=== PATIENT | male | born 1950 | race Caucasian/White ===

== ENCOUNTER 2023-03-13 14:32 | Outpatient (REF) | payer MEDICARE, SELFPAY ==
--- NOTE | ~2023-03-13 | XR_ITS ---
EXAMINATION: XR HAND, LEFT CLINICAL INFORMATION: Pain and swelling. No injury. COMPARISON: Left hand radiographs dated 03/09/2017. TECHNIQUE: PA, lateral, and oblique views of the left hand. XR/XR hand LT min 3V FINDINGS / IMPRESSION: No fracture. Alignment is anatomic. Joint spaces are maintained. No erosions or soft tissue calcifications.
--- NOTE | ~2023-03-13 | XR_ITS ---
EXAMINATION: XR HAND, RIGHT CLINICAL INFORMATION: Pain and swelling. No injury. COMPARISON: Right hand radiographs dated 03/09/2017. TECHNIQUE: PA, lateral, and oblique views of the right hand. XR/XR hand RT min 3V FINDINGS / IMPRESSION: No fracture. Alignment is anatomic. Joint spaces are maintained. No erosions or soft tissue calcifications.
== END 2023-03-13 14:33 | disposition home or self-care (01) ==
LOC: HO.XRAY 14:32
PROVIDERS: PCP Internal Medicine; Visit Provider Internal Medicine
DX: R60.0 Localized edema (principal); M79.641 Pain in right hand; M79.642 Pain in left hand
CPT/HCPCS: 73130

== ENCOUNTER 2023-06-19 10:38 | Outpatient (REF) | payer MEDICARE, SELFPAY ==
--- NOTE | ~2023-06-19 | XR_ITS ---
EXAMINATION: XR LUMBOSACRAL SPINE CLINICAL INFORMATION: Low back pain. COMPARISON: None available. TECHNIQUE: Three views of the lumbosacral spine. FINDINGS: There is 1.2 cm of anterolisthesis of L4 on L5. Otherwise, anatomic alignment. No evidence of acute compression deformity. Moderate to severe intervertebral disc height loss spanning L3-S1. Moderate to severe facet arthropathy at L4-L5 and L5-S1 leading to some degree of neural foraminal encroachment and central canal narrowing. Symmetric SI joints. Pelvic phleboliths. Atherosclerotic disease of the abdominal aorta. XR/XR lumbar spine 2-3V IMPRESSION: 1. No acute compression deformity. 2. There is 1.2 cm of anterolisthesis of L4 on L5, most likely degenerative in nature. Recommend correlation with point tenderness. 3. Moderate to severe lower lumbar spondylosis; further characterization with MRI would be helpful for evaluation of the degree of nerve root impingement and central canal stenosis if clinically deemed appropriate.
== END 2023-06-19 10:39 | disposition home or self-care (01) ==
LOC: HO.HMGCX 10:38
PROVIDERS: PCP Internal Medicine; Visit Provider Internal Medicine
DX: M54.50 Low back pain, unspecified (principal)
CPT/HCPCS: 72100

== ENCOUNTER 2023-07-09 19:35 | Outpatient (REF) | payer MEDICARE, SELFPAY ==
--- NOTE | ~2023-07-09 | MR_ITS ---
EXAMINATION: MR LUMBAR SPINE WITHOUT CONTRAST CLINICAL INFORMATION: Low back pain, moderate to severe spondylolysis COMPARISON: Lumbar radiographs 06/19/2023 TECHNIQUE: MRI of the lumbar spine was obtained using routine sequences without the administration of intravenous contrast. FINDINGS: This examination assumes the presence of 5 lumbar type vertebral bodies. For the purposes of this examination, the L5-S1 intervertebral disc space is visualized on axial series 5 image 32. The normal lumbar lordosis is preserved. Dextrocurvature of the lumbar spine. Grade 1 anterolisthesis of L4-L5. Lumbar vertebral body heights are maintained. Multilevel degenerative endplate changes are noted. Subchondral cystic change in the L3, L5 and S1 vertebral bodies. The conus medullaris is normal in signal intensity and terminates at the level of L1. At T12-L1: Disc bulge with small right foraminal/far lateral disc protrusion. Facet arthropathy. The spinal canal is not significantly narrowed. The left neural foramen is patent. There is mild narrowing of the right neural foramen. L1-L2: Disc bulge and facet arthropathy. The spinal canal is not significantly narrowed. The neural foramen are patent. L2-L3: Trace disc bulge with facet arthropathy ligamentum flavum redundancy. The spinal canal and neural foramen are not significantly narrowed. L3-L4: Disc bulge and osteophytic ridging which is eccentric to the left. Facet arthropathy ligamentum flavum hypertrophy. Mild narrowing of the lateral recesses. The central canal is otherwise patent. There is mild to moderate right neural foraminal stenosis. Moderate left neural foraminal stenosis with abutment of the exiting left L3 nerve root. L4-L5: Severe facet arthropathy with ligamentum flavum redundancy. There is severe spinal canal stenosis at L4-L5 and extending inferiorly to the lower third of the L5 vertebral body. Near complete effacement of the thecal sac with crowding of the cauda equina nerve roots that is likely on a chronic, degenerative basis given severe facet arthropathy. There is a diffuse disc bulge with severe left neural foraminal stenosis and exiting nerve root impingement. Moderate to severe right neural foraminal stenosis with probable exiting nerve root impingement. Bilateral facet joint effusions. L5-S1: Eccentric right disc bulge and osteophytic ridging extending into the right neural foramen and far lateral space. Facet arthropathy with ligamentum flavum hypertrophy. Narrowing of the lateral recesses, greater on the right. The spinal canal is otherwise patent. Severe right neural foraminal stenosis with impingement of the exiting right L5 nerve root in the distal foramen/far lateral space. The left neural foramen is patent. Right renal cyst. MR/MR lumbar spine wo con IMPRESSION: There is grade 1 anterolisthesis of L4-L5 on the basis of severe facet arthropathy. There is associated severe spinal canal stenosis extending from L4-L5 through the inferior one third of the L5 vertebral body with near complete effacement of the thecal sac and crowding of/mass effect on the cauda equina nerve roots. Finding is likely on a chronic degenerative basis, but correlation for cauda equina symptomatology is recommended. Advanced neural foraminal stenoses in the lower lumbar spine with exiting nerve root impingement as described above. Findings to be called to the ordering clinician by a [place] [facility] Phys[facility] Bakery Deliverer.
== END 2023-07-09 19:36 | disposition home or self-care (01) ==
LOC: HO.MRI 19:35
PROVIDERS: PCP Internal Medicine; Visit Provider Internal Medicine
DX: M47.816 Spondylosis without myelopathy or radiculopathy, lumbar region (principal)
CPT/HCPCS: 72148

== ENCOUNTER 2024-03-14 11:00 | Outpatient (AMB) | payer MEDICARE, SELFPAY ==
--- NOTE | 2024-03-14 11:01 | A.OFFVIS_ITS ---
Intake Visit Reasons: urinary urgency, urinary frequency Intake Note: Patient is present for urinary urgency, urinary frequency Urology Medication:none Antibiotic Allergy:penicillin Blood Thinner:none today's PVR: 11ml's Clerical Dentist Assistant Required: No Allergies penicillin V Allergy (Unknown, Verified 03/14/24 11:03) Unknown Medication List - Last Reconciled 03/14/24 by Hetal Soriano MD tamsulosin (Flomax) 0.4 mg PO BEDTIME HPI Comments Details: Juanpablo is a 73-year-old male who is here with complaints of urinary frequency and urgency. He states symptoms have been worsening over the last year and a half. He denies dysuria. The patient is not on prescribed medication. He states his PCP is monitoring his cholesterol. Denies family history prostate cancer. AUA symptom score 33/35. Prostate exam is smooth, mildly enlarged, bladder scan PVR 11 mL, urinalysis negative. I have discussed trial of tamsulosin will check renal bladder ultrasound. Review of Systems Const All systems reviewed & are unremarkable except as noted in HPI and below Reports no additional complaints Eyes Reports no additional complaints ENT Reports no additional complaints Card Reports no additional complaints Resp Reports no additional complaints GI Reports no additional complaints Reports as per HPI Musc Reports no additional complaints Skin/Breast Reports system reviewed and no additional complaints, except as documented Neuro Reports no additional complaints Psych Reports no additional complaints Endo Reports no additional complaints Ernesto/Lymph Reports no additional complaints Aller/Immun Reports no additional complaints Physical Exam Const General: healthy appearing, no acute distress and well developed Orientation/consciousness: patient oriented x3 HEENT Head: Yes normocephalic and Yes atraumatic Eyes Conjunctivae: conjunctivae normal Neck Neck: Yes normal visual inspection Chest Chest palpation & inspection: normal inspection of the chest Resp Effort & Inspection: normal respiratory effort Cardio Jugular venous distension: no JVD GI Inspection: Yes normal to inspection Palpation (GI): Soft to palpation Other: Prostate Exam: smooth, mildly enlarged Skin General skin exam: no rashes or lesions noted Neuro General: patient oriented x3 Extrem General: No pedal edema Psych Appearance: grossly normal Affect: normal affect Results AMB Urinalysis, Automated UA Leukoctes 0 Roger/uL Last Edit by ZENAIDA Salcedo on 03/14/24 11:17 UA Nitrite Negative Last Edit by ZENAIDA Salcedo on 03/14/24 11:17 UA Urobilinogen 0.2 mg/dL Last Edit by ZENAIDA Salcedo on 03/14/24 11:1 7 UA Protein 0 mg/dL Last Edit by ZENAIDA Salcedo on 03/14/24 11:17 UA pH 5.5 Last Edit by ZENAIDA Salcedo on 03/14/24 11:17 UA Blood 0 Abhishek/uL Last Edit by ZENAIDA Salcedo on 03/14/24 11:17 UA Specific [place] 1.015 Last Edit by ZENAIDA Salcedo on 03/14/24 11: 17 UA Ketone Negative Last Edit by ZENAIDA Salcedo on 03/14/24 11:17 UA Bilirubin 0 mg/dL Last Edit by ZENAIDA Salcedo on 03/14/24 11:17 UA Glucose 0 mg/dL Last Edit by ZENAIDA Salcedo on 03/14/24 11:17 Quality Reporting (2019) Benign Prostatic Hyperplasia ([facility] 771) AUA symptom score: 33 Quality of life due to urinary symptoms: If you were to spend the rest of your life with your urinary condition the way it is now, how would you feel about that?: Unhappy Results Reviewed Results Reviewed: Laboratory Last Values Urine pH (Auto) 5.5 03/14/24 11:17 Specific [place] (Auto) 1.015 03/14/24 11:17 Urine Protein (Auto) 0 mg/dL 03/14/24 11:17 Glucose (UA)(Auto) 0 mg/dL 03/14/24 11:17 Urine Ketones (Auto) Negative 03/14/24 11:17 Urine Blood (Auto) 0 Abhishek/uL 03/14/24 11:17 Urine Nitrite (Auto) Negative 03/14/24 11:17 Urine Bilirubin (Auto) 0 mg/dL 03/14/24 11:17 Urine Urobilinogen (Auto) 0.2 mg/dL 03/14/24 11:17 Leukocyte Esterase (Auto) 0 Roger/uL 03/14/24 11:17 Assessment & Plan Assessment & Plan (1) Urinary frequency: Code(s): R35.0 - Frequency of micturition Category: Medical (2) BPH loc w urin obs/LUTS: Code(s): N40.1 - Benign prostatic hyperplasia with lower urinary tract symptoms Category: Medical Plan Tamsulosin 0.4 mg daily, renal bladder ultrasound. Follow-up in 3 months Orders: Orders US retroperitoneal comp Today R35.0 - Frequency of micturition AMB Urinalysis Automated Today Z13.9 - Encounter for screening, unspecified Medications: New tamsulosin (Flomax) 0.4 mg PO BEDTIME 30 caps 4RF Patient Instructions: The patient had an opportunity to ask questions regarding treatment plan. The patient expressed understanding and agreement with the above treatment plan. The patient is aware they should contact our office by phone for worsening of their current condition or the appearance of new symptoms. Compliance is enc ouraged with any medications and followup testing that is ordered. It is a privilege to be allowed the opportunity to participate in the urologic care of your patient. If you have any questions or concerns regarding treatment for the above conditions please do not hesitate to contact me. The office telephone contact is [phone]. This note is constructed in part using voice recognition software. While every effort has been made to ensure accuracy pediatric oncology nurse errors may have been included. Yours sincerely, Hetal Soriano MD Coding Level of Care Code New Pt Level 4 (43212) Diagnoses Urinary frequency R35.0 BPH loc w urin obs/LUTS N40.1 AUA Symptom Score AUA Incomplete emptying - It does not feel like I empty my bladder all the way.: 5 - Almost always Frequency - I have to go again less than two hours after I finish urinating.: 5 - Almost always Intermittency - I stop and start again several times when I urinate.: 5 - Almost always Urgency - It is hard to wait when I have to urinate.: 5 - Almost always Weak stream - I have a weak urinary stream.: 5 - Almost always Straining - I have to push or strain to begin urination.: 5 - Almost always Nocturia - I get up to urinate after I go to bed until the time I get up in the morning.: 3 times AUA Symptom Score: 33 Quality of life due to urinary symptoms: If you were to spend the rest of your life with your urinary condition the way it is now, how would you feel about that?: Unhappy Source: Jacoby COLMENARES, Lencho GUERRIER Jr, O'Shanon JONES, et al, and the Measurement Committee of the [employer]. The [employer] symptom index for benign prostatic hyperplasia. J Urol. 1992; 148: 7751-6001. Copyright 1992 [employer]
== END 2024-03-14 11:44 | disposition home or self-care (01) ==
PROVIDERS: PCP Internal Medicine; Visit Provider Urology
DX: N40.1 Benign prostatic hyperplasia with lower urinary tract symptoms (principal); R35.0 Frequency of micturition; Z13.9 Encounter for screening, unspecified
CPT/HCPCS: 99204

== ENCOUNTER → 2024-03-14 11:00 | Outpatient (BNVA) | payer MEDICARE, SELFPAY | PROVIDERS: PCP Internal Medicine; Visit Provider Urology | DX: N40.1 Benign prostatic hyperplasia with lower urinary tract symptoms (principal); R35.0 Frequency of micturition | CPT/HCPCS: 81003; 99202 ==

== ENCOUNTER 2024-06-16 11:31 | Outpatient (AMB) | payer MEDICARE, SELFPAY ==
--- NOTE | 2024-06-16 11:33 | A.OFFVIS_ITS ---
Intake Visit Reasons: Follow up w/US Intake Note: Patient is present for F/U US Urology Medication:NONE Antibiotic Allergy:PENICILLIN Blood Thinner:NONE Preparation Plant Repairer Required: No Allergies penicillin V Allergy (Unknown, Verified 06/16/24 11:33) Unknown Medication List - Last Reconciled 06/16/24 by Hetal Soriano MD dutasteride (Avodart) 0.5 mg PO DAILY HPI Comments Details: 06/16/24--Juanpablo is here for FU, he states he did not tolerate tamsulosin use apnea mask, Stuffy nose. He drinks 25 ounces coffee, has L3-4 disc had back pain, approximately 4 month ago he got cortisone injection discussed sequela of BPH can include bladder remodeling. US retro pending, Plan--avodart Review of chart: 03/14/24--Juanpablo is a 73-year-old male who is here with complaints of urinary frequency and urgency. He states symptoms have been worsening over the last year and a half. He denies dysuria. The patient is not on prescribed medication. He states his PCP is monitoring his cholesterol. Denies family history prostate cancer. AUA symptom score 33/35. Prostate exam is smooth, mildly enlarged, bladder scan PVR 11 mL, urinalysis negative. I have discussed trial of tamsulosin will check renal bladder ultrasound. Review of Systems Const All systems reviewed & are unremarkable except as noted in HPI and below Reports no additional complaints Eyes Reports no additional complaints ENT Reports no additional complaints Card Reports no additional complaints Resp Reports no additional complaints GI Reports no additional complaints Reports as per HPI Musc Reports no additional complaints Skin/Breast Reports system reviewed and no additional complaints, except as documented Neuro Reports no additional complaints Psych Reports no additional complaints Endo Reports no additional complaints Ernesto/Lymph Reports no additional complaints Aller/Immun Reports no additional complaints Results AMB Urinalysis, Automated UA Leukoctes 0 Roger/uL Last Edit by ZENAIDA Salcedo on 06/16/24 11:49 UA Nitrite Negative Last Edit by ZENAIDA Salcedo on 06/16/24 11:49 UA Urobilinogen 0.2 mg/dL Last Edit by ZENAIDA Salcedo on 06/16/24 11:4 9 UA Protein 0 mg/dL Last Edit by ZENAIDA Salcedo on 06/16/24 11:49 UA pH 6.0 Last Edit by ZENAIDA Salcedo on 06/16/24 11:49 UA Blood 0 Abhishek/uL Last Edit by ZENAIDA Salcedo on 06/16/24 11:49 UA Specific [place] 1.015 Last Edit by ZENAIDA Salcedo on 06/16/24 11: 49 UA Ketone Negative Last Edit by ZENAIDA Salcedo on 06/16/24 11:49 UA Bilirubin 0 mg/dL Last Edit by Sujey Brunner CCM on 06/16/24 11:49 UA Glucose 0 mg/dL Last Edit by ZENAIDA Salcedo on 06/16/24 11:49 Results Reviewed Results Reviewed: Laboratory Last Values Urine pH (Auto) 6.0 06/16/24 11:48 Specific [place] (Auto) 1.015 06/16/24 11:48 Urine Protein (Auto) 0 mg/dL 06/16/24 11:48 Glucose (UA)(Auto) 0 mg/dL 06/16/24 11:48 Urine Ketones (Auto) Negative 06/16/24 11:48 Urine Blood (Auto) 0 Abhishek/uL 06/16/24 11:48 Urine Nitrite (Auto) Negative 06/16/24 11:48 Urine Bilirubin (Auto) 0 mg/dL 06/16/24 11:48 Urine Urobilinogen (Auto) 0.2 mg/dL 06/16/24 11:48 Leukocyte Esterase (Auto) 0 Roger/uL 06/16/24 11:48 Assessment & Plan Assessment & Plan (1) Urinary frequency: Code(s): R35.0 - Frequency of micturition Category: Medical (2) BPH loc w urin obs/LUTS: Code(s): N40.1 - Benign prostatic hyperplasia with lower urinary tract symptoms Category: Medical Plan US retro pending, Plan--avodart Orders: Orders AMB Urinalysis Automated 06/16/24 Z13.9 - Encounter for screening, unspecified Medications: New dutasteride (Avodart) 0.5 mg PO DAILY 30 caps 3RF Patient Instructions: The patient had an opportunity to ask questions regarding treatment plan. The patient expressed understanding and agreement with the above treatment plan. The patient is aware they should contact our office by phone for worsening of their current condition or the appearance of new symptoms. Compliance is encouraged with any medications and followup testing that is ordered. It is a privilege to be allowed the opportunity to participate in the urologic care of your patient. If you have any questions or concerns regarding treatment for the above conditions please do not hesitate to contact me. The office telephone contact is [phone]. This note is constructed in part using voice recognition software. While every effort has been made to ensure accuracy tube coverer errors may have been included. Yours sincerely, Hetal Soriano MD Coding Level of Care Code Est Pt Level 4 (81058) Diagnoses Urinary frequency R35.0 BPH loc w urin obs/LUTS N40.1
== END 2024-06-16 12:11 | disposition home or self-care (01) ==
PROVIDERS: PCP Internal Medicine; Visit Provider Urology
DX: N40.1 Benign prostatic hyperplasia with lower urinary tract symptoms (principal); R35.0 Frequency of micturition
CPT/HCPCS: 99214

== ENCOUNTER → 2024-06-16 11:31 | Outpatient (BNVA) | payer MEDICARE, SELFPAY | PROVIDERS: PCP Internal Medicine; Visit Provider Urology | DX: N40.1 Benign prostatic hyperplasia with lower urinary tract symptoms (principal); R35.0 Frequency of micturition | CPT/HCPCS: 81003; 99212 ==

== ENCOUNTER 2024-08-05 13:14 | Outpatient (REF) | payer MEDICARE, SELFPAY | END 2024-08-05 13:15 | disposition home or self-care (01) | LOC: HO.US 13:14 | PROVIDERS: PCP Internal Medicine; Visit Provider Urology | DX: R35.0 Frequency of micturition (principal) | CPT/HCPCS: 76770 ==

== ENCOUNTER 2024-09-22 10:25 | Outpatient (AMB) | payer MEDICARE, SELFPAY ==
--- NOTE | 2024-09-22 11:04 | MHC.OFFVIS ---
Intake Visit Reasons: cysto/ US follow up Intake Note: Patient is Present for Follow Up Med Review Urology Medication: Dutasteride Antibiotic Allergies: None Blood Thinners: None PVR:67ML Fire Sprinkler Installer Required: No Accompanied by: Self / Same As Patient Allergies penicillin V Allergy (Unknown, Verified 09/22/24 11:13) Unknown Medication List - Last Reconciled 09/22/24 by Hteal Soriano MD dutasteride (Avodart) 0.5 mg PO DAILY mirabegron ER (Myrbetriq) 25 mg PO DAILY HPI Comments Details: 09/22/24--Juanpablo is here in follow-up post ultrasound retroperitoneal. Kidneys are within normal limits, bladder wall thickening noted. Prostate is not significantly enlarged. The patient has tolerated dutasteride but not seen any improvement in urinary symptoms. I have discussed ultrasound findings, bladder wall thickening can be associated with bladder spasms and clinical symptoms of urgency. Will trial Myrbetriq 25 mg daily. The patient had blood work done with his PCP recently, we will check to see if a PSA was done and if within normal limits will discontinue the dutasteride. Re-evaluate in 3 months check bladder scan PVR at that time as well as any improvement in urinary symptoms of urgency frequency. 06/16/24--Juanpablo is here for FU, he states he did not tolerate tamsulosin use apnea mask, Stuffy nose. He drinks 25 ounces coffee, has L3-4 disc had back pain, approximately 4 month ago he got cortisone injection discussed sequela of BPH can include bladder remodeling. US retro pending, Plan--avodart 03/14/24--Juanpablo is a 73-year-old male who is here with complaints of urinary frequency and urgency. He states symptoms have been worsening over the last year and a half. He denies dysuria. The patient is not on prescribed medication. He states his PCP is monitoring his cholesterol. Denies family history prostate cancer. AUA symptom score 33/35. Prostate exam is smooth, mildly enlarged, bladder scan PVR 11 mL, urinalysis negative. I have discussed trial of tamsulosin will check renal bladder ultrasound. Review of Systems Const All systems reviewed & are unremarkable except as noted in HPI and below Reports no additional complaints Eyes Reports no additional complaints ENT Reports no additional complaints Card Reports no additional complaints Resp Reports no additional complaints GI Reports no additional complaints Reports as per HPI Musc Reports no additional complaints Skin/Breast Reports system reviewed and no additional complaints, except as documented Neuro Reports no additional complaints Psych Reports no additional complaints Endo Reports no additional complaints Ernesto/Lymph Reports no additional complaints Aller/Immun Reports no additional complaints Office Procedures Post Void Residual Post Residual Void Post Void Residual (PVR): [id number] Void Residual by ultrasound Results AMB Urinalysis, Automated UA Leukoctes 0 Roger/uL Last Edit by Charlotte Hollins [facility] on 09/22/24 11:17 UA Nitrite Negative Last Edit by Charlotte Hollins, A on 09/22/24 11:17 UA Urobilinogen 0.2 mg/dL Last Edit by Charlotte Hollins [facility] on 09/22/24 11:17 UA Protein 0 mg/dL Last Edit by Charlotte Hollins, A on 09/22/24 11:17 UA pH 6.5 Last Edit by Charlotte Hollins [facility] on 09/22/24 11:17 UA Blood 0 Abhishek/uL Last Edit by Charlotte Hollins, [facility] on 09/22/24 11:17 UA Specific [place] 1.010 Last Edit by Charlotte Hollins, [facility] on 09/22/24 11:17 UA Ketone Negative Last Edit by Charlotte Hollins, [facility] on 09/22/24 11:17 UA Bilirubin 0 mg/dL Last Edit by Charlotte Hollins, A on 09/22/24 11:17 UA Glucose 0 mg/dL Last Edit by Charlotte Hollins [facility] on 09/22/24 11:17 Results Reviewed Results Reviewed: Laboratory Last Values Urine pH (Auto) 6.5 09/22/24 11:16 Specific [place] (Auto) 1.010 09/22/24 11:16 Urine Protein (Auto) 0 mg/dL 09/22/24 11:16 Glucose (UA)(Auto) 0 mg/dL 09/22/24 11:16 Urine Ketones (Auto) Negative 09/22/24 11:16 Urine Blood (Auto) 0 Abhishek/uL 09/22/24 11:16 Urine Nitrite (Auto) Negative 09/22/24 11:16 Urine Bilirubin (Auto) 0 mg/dL 09/22/24 11:16 Urine Urobilinogen (Auto) 0.2 mg/dL 09/22/24 11:16 Leukocyte Esterase (Auto) 0 Roger/uL 09/22/24 11:16 Date of Service: 08/05/24 US RETROPERITONEAL COMPLETE (RENAL) CLINICAL INFORMATION: Frequency of micturition. Please measure prostate. COMPARISON: None available. TECHNIQUE: Real-time imaging of the kidneys and bladder. Limited visualization due to bowel gas. FINDINGS: RIGHT KIDNEY: 9.6 x 4.3 x 4.7 cm (SAG x AP x TRV). Right renal 0.9 cm lower pole cyst with benign features. There is no indication for followup imaging. No hydronephrosis. No renal calculi. Renal cortical thickness is normal. Limited visualization. LEFT KIDNEY: 9.5 x 5.2 x 4.3 cm (SAG x AP x TRV). No hydronephrosis. No renal calculi. Renal cortical thickness is normal. Limited visualization. BLADDER: Moderately distended. Mild diffuse irregularity/trabeculation of the bladder wall. Bilateral ureteral jets are demonstrated. Prevoid bladder volume is 161 mL. Postvoid bladder volume is 46 mL. PROSTATE GLAND: The prostate volume is 20 mL. IMPRESSION: Mild diffuse irregularity/trabeculation of the bladder wall. No hydronephrosis. No renal calculi. Prostate volume 20 mL. Assessment & Plan Assessment & Plan (1) Urinary frequency: Code(s): R35.0 - Frequency of micturition Category: Medical (2) BPH loc w urin obs/LUTS: Code(s): N40.1 - Benign prostatic hyperplasia with lower urinary tract symptoms Category: Medical Plan myrbetriq 25 mg daily, fu labs, check PSA, dc avodart pending PSA results fu in 3 months Orders: Orders AMB Post Void Residual by ultrasound Today N40.1 - Benign prostatic hyperplasia with lower urinary tract symptoms AMB Urinalysis Automated Today Z13.9 - Encounter for screening, unspecified Medications: New mirabegron ER (Myrbetriq) 25 mg PO DAILY 30 tabs 3RF Patient Instructions: The patient had an opportunity to ask questions regarding treatment plan. The patient expressed understanding and agreement with the above treatment plan. The patient is aware they should contact our office by phone for worsening of their current condition or the appearance of new symptoms. Compliance is encouraged with any medications and followup testing that is ordered. It is a privilege to be allowed the opportunity to participate in the urologic care of your patient. If you have any questions or concerns regarding treatment for the above conditions please do not hesitate to contact me. The office telephone contact is [phone]. This note is constructed in part using voice recognition software. While every effort has been made to ensure accuracy lunchroom mother errors may have been included. Yours sincerely, Hetal Soriano MD Coding Level of Care Code Est Pt Level 4 (53045) Diagnoses Urinary frequency R35.0 BPH loc w urin obs/LUTS N40.1 CPT Codes Post Residual Void - PVR CPT Code: 06875-[id number] Void Residual by ultrasound ([id number])
== END 2024-09-22 12:18 | disposition home or self-care (01) ==
PROVIDERS: PCP Internal Medicine; Visit Provider Urology
DX: N40.1 Benign prostatic hyperplasia with lower urinary tract symptoms (principal); R35.0 Frequency of micturition; Z13.9 Encounter for screening, unspecified
CPT/HCPCS: 99214

== ENCOUNTER → 2024-09-22 10:25 | Outpatient (BNVA) | payer MEDICARE, SELFPAY | PROVIDERS: PCP Internal Medicine; Visit Provider Urology | DX: N40.1 Benign prostatic hyperplasia with lower urinary tract symptoms (principal); R35.0 Frequency of micturition | CPT/HCPCS: 51798; 81003; 99212 ==